=== PATIENT | male | born 1940 | race Caucasian/White ===

== ENCOUNTER → 2020-09-29 10:29 | Outpatient (CLI) | payer MEDICARE, OTHER, SELFPAY ==
[2020-09-29 11:28] LABS: BUN Creatinine Ratio 26.5 (6-22); Blood Urea Nitrogen 22 mg/dL (9-20); Calcium 9.1 mg/dL (8.4-10.2); Carbon Dioxide 26 mmol/L (22-32); Chloride 105 mmol/L (98-107); Estimated Glomerular Filt Rate > 60.0 mL/min (>60); Glucose 118 mg/dL (80-110); HEMOLYSIS < 15 (0-50); Potassium 4.2 mmol/L (3.4-5.1); Sodium 139 mmol/L (137-145)
== END ==
PROVIDERS: PCP Family Medicine; Referring Provider Urology; Visit Provider Urology
DX: R31.0 Gross hematuria (principal); D68.51 Activated protein C resistance; Z79.01 Long term (current) use of anticoagulants; Z87.891 Personal history of nicotine dependence
CPT/HCPCS: 36415; 51798; 80048; 81002; 99214

== ENCOUNTER → 2020-10-12 11:21 | Outpatient (CLI) | payer MEDICARE, OTHER, SELFPAY ==
--- NOTE | 2020-10-12 11:56 | DI.CT.S_ITS ---
PROCEDURE: CT ABDOMEN PELVIS WO/W CON INDICATIONS: Gross hematuria chronic anticoagulation TECHNIQUE: After the administration of oral contrast, 5 mm thick sections acquired from the diaphragms to the iliac crests. After the administration of intravenous contrast, 5 mm thick sections acquired from the diaphragms to the symphysis. 5 mm thick coronal and sagittal reformats were acquired. For radiation dose reduction, the following was used: automated exposure control, adjustment of mA and/or kV according to patient size. COMPARISON: None. FINDINGS: Image quality: Excellent. ABDOMEN: Lung bases: Lung bases are clear except for mild linear scarring, right greater than left.. Heart size is normal. Solid organs: Liver is normal in size and enhancement. Gallbladder is contracted . Biliary system is non-dilated. Pancreas enhances normally. Spleen is normal in size and enhancement. No adrenal nodules. Both kidneys are normal in size. No hydronephrosis or nephrolithiasis. There is no sign of residual perinephric hematoma or renal cortical thinning that would indicate presence of previous trauma and scarring. Bowel and peritoneum: Stomach, small and large bowel loops are normal in caliber and wall thickness. No free fluid or air. Nodes and vessels: No retroperitoneal or mesenteric adenopathy by size criteria. Aorta and inferior vena are normal in caliber. Miscellaneous: No ventral hernias. PELVIS: Genitourinary: Bladder wall thickness is normal. Within the bladder there are1 2 bladder calculi, 1 of which is to the left of midline and measures only approximately 2 mm. The larger calculus is almost exactly at the midline, and measures up to 1.4 cm. Miscellaneous: No inguinal hernias or adenopathy. Bones: No suspicious bony lesions. No vertebral body compression fractures. IMPRESSION: Prior presumed renal trauma producing gross hematuria in July of this year has left no identifiable renal cortical scarring or residual hematoma. No hydronephrosis or nephrolithiasis found. Two separate bladder calculi are currently present within the bladder lumen. There also is a small pelvic phlebolith on the left lateral to the bladder posterolateral margin. Dictated by: Harley Bettencourt M.D. on 10/12/2020 at 12:56 Approved by: Harley Bettencourt M.D. on 10/12/2020 at 13:27
== END ==
PROVIDERS: PCP Family Medicine; Referring Provider Urology; Visit Provider Urology
DX: R31.0 Gross hematuria (principal); Z79.01 Long term (current) use of anticoagulants; N21.0 Calculus in bladder
CPT/HCPCS: 74178; Q9967

== ENCOUNTER → 2020-11-08 08:19 | Outpatient (CLI) | payer MEDICARE, OTHER, SELFPAY ==
[2020-11-08 09:52] LABS: COVID19 -Nasal RAPID Negative (Negative)
== END ==
PROVIDERS: PCP Family Medicine; Visit Provider Urology
DX: Z20.822 Contact with and (suspected) exposure to COVID-19 (principal)
CPT/HCPCS: 87635; C9803

== ENCOUNTER 2020-11-10 06:33 | Day surgery (SDC) | payer MEDICARE, OTHER, SELFPAY ==
[2020-11-03 14:52] VITALS: BMI 25.0
[2020-11-10] VITALS (9 sets, daily range): BP systolic 97–129; BP diastolic 61–91; PULSE 71–113; RESP 10–18; TEMP 36.4–36.7; O2SAT 96–100; BMI 25.0
[2020-11-10] MEDS: ACETAMINOPHEN 325 MG TABLET 975 MG PO (07:38)
--- NOTE | 2020-11-10 07:38 | PM.PREOP ---
Pre-operative Note COVID-19 COVID-19 status: Negative Result date/Date tested (Pos, Neg/Pending): 11/08/20 Interval Note History & Physical reviewed/Exam performed by Physician: Yes Changes to H&P: No
[2020-11-10] MEDS: LACTATED RINGERS 1,000 ML 42 ML IV ×2 (07:39→09:20)
[2020-11-10] MEDS: CEFAZOLIN 1 GM VIAL 2 GM IV (08:00)
--- NOTE | 2020-11-10 08:17 | SUR.OPER ---
Lithotomy on padded OR bed, head on pillow, arms secured on padded arm boards at <90 degrees abduction. Legs secured in padded yellow fins stirrups.
--- NOTE | 2020-11-10 09:03 | SUR.PHASEI ---
Received to PACU after general anesthesia. Oral airway in place. No further airway assistance required. Report from KEISHA Pearson and Dr Hester. [id number] - Oral airway out without difficulty. Pt awake and alert.
--- NOTE | 2020-11-10 09:16 | P.OP_ITS ---
Procedure & Clinicians Procedure: Laser cystolitholapaxy Same procedure as scheduled: Yes Indications: Very pleasant 79-year-old male who has 2 bladder calculi presents at this time for cysto litholapaxy via laser. Surgeon: Som Cárdenas Click Yes if Unassisted: Yes Anesthesia Type: General Operative Notes Findings: Urethra normal to the prostatic fossa. Prostatic fossa exhibits moderate approaching severe obstructive character. There is some protrusion into the bladder. The bladder exhibits severe trabeculation, cellules and some degree of webbing. Two stones are noted in the bladder 1 larger and 1 smaller. They have a rather coral like appearance and are brown wilson. They removed in their entirety after laser lithotripsy. Total laser energy 3219 kilos joules. Ureteral orifices in normal position with clear efflux. On the posterior right bladder in the area of the trigone there was a small papillary lesion that looked inflammatory and was in the area for the stones were residing. These will need to be revisited. No other abnormalities are noted. Closure Type: not applicable Specimen(s): other (Stone fragments were sent for composition analysis.) Estimated Blood Loss (mL): 5 Procedure in detail: After informed consent was obtained the patient was identified and brought to the operating room. The patient was then placed in supine position on the operating room table anesthesia was induced to maintain. The patient was then placed in lithotomy position and prepped with a sterilizing prepped draped in a sterile fashion for cystolitholapaxy. After prepping draping and ensuring an adequate level of anesthesia. The continuous flow cystoscope was passed through the urethra and bladder. Cystoscopy was then performed. With the stones identified the laser fiber was inserted And cystolitholapaxy via laser was performed to the stone was well fragmented. The fragments were then evacuated until none were left. There was 1 point of bleeding which was controlled with the laser. The bladder was then drained, filled, drained, fill and the bladder observe for hemostasis which was complete. The bladder was then drained and the scope removed. The patient was then aw akened taken to the postanesthesia care unit having tolerated the procedure well patient follow-up my office in approximately 10 days. Complications: none Post-operative Condition: stable Disposition: PACU Plan for aftercare: Discharge to home.
--- NOTE | 2020-11-10 11:16 | SUR.OPER ---
[id number] 219 seconds
[2020-11-16 16:07] LABS: Ca oxalate dihydrate 100 % (.); Size 4x3 mm (.)
== END 2020-11-10 10:38 | disposition home or self-care (01) ==
PROVIDERS: PCP Family Medicine; Referring Provider Urology; Visit Provider Urology
PROC: 0TCB8ZZ Extirpation of Matter from Bladder, Via Natural or Artificial Opening Endoscopic (ICD-10-PCS; CPT 52317; principal; 2020-11-10 07:45)
DX: N21.0 Calculus in bladder (principal); D68.2 Hereditary deficiency of other clotting factors; Z79.01 Long term (current) use of anticoagulants
CPT/HCPCS: 52317; 82365; 82962; 85610; J0690; J1100; J2250; J2405; J2704; J3010